=== PATIENT | female | born 1985 | race Hispanic/Latino ===

== ENCOUNTER 2024-03-22 01:51 | Emergency (ER) | payer BC ==
[~2024-03-22] VITALS: Ht 160 cm; Wt 96.2 kg
[2024-03-22] MEDS: MORPHINE 4 MG SYG IVP ONE (03:54)
[2024-03-22] MEDS: ONDANSETRON 4MG INJ IVP ONE (03:54)
[2024-03-22] MEDS ORDERED: FIORIT PO (05:56)
[2024-03-22 06:07] VITALS: BP 128/68; PULSE 92; RESP 20; O2SAT 99
== END 2024-03-22 06:19 | disposition home or self-care (01) ==
LOC: EDH 01:51
DX: G43.909 Migraine, unspecified, not intractable, without status migrainosus (principal)
CPT/HCPCS: 99284; 96374; 70450; 96375; J2405; J2270